=== PATIENT | male | born 1985 | race Caucasian/White ===

== ENCOUNTER 2025-07-06 11:40 | Inpatient (IN) | payer BC ==
[~2025-07-06 11:40] MED LIST: Iopamidol 300 61% 100 ML VIAL FS ONE
[2025-07-06] MEDS ORDERED: Ondansetron PF 4 MG/2 ML Vial ONE (12:16)
[2025-07-06 12:54] LABS: #Basophils 0.07 10x3/uL (0.0-0.2); #Eosinophils Less than 0.03 10x3/uL (0.0-0.5); #Monocytes 0.64 10x3/uL (0.0-1.1); #Neutrophils 9.89 10x3/uL (1.5-8.4); %Basophils 0.6 % (0.0-2.0); %Eosinophils 0.0 % (0.0-6.0); %Lymphocytes 10.8 % (18.0-47.0); %Monocytes 5.4 % (0.0-10.0); %Neutrophils 82.7 % (40.0-75.0); ALT (SGPT) 60 U/L (Less than 45); AST (SGOT) 30 U/L (11-34); Acetaminophen Less than 10 mcg/mL (Less than 10); Albumin 4.9 g/dL (3.1-4.5); Alkaline Phosphatase 95 U/L (40-110); Anion Gap 37 mmol/L (10-20); BUN (Urea Nitrogen) 30 mg/dL (8.9-20.6); Bilirubin, Total 0.8 mg/dL (0.3-1.2); CK (CPK) 216 U/L (30-200); Calc. Creatinine Clearance 0 mL/min (70-130); Calcium 10.1 mg/dL (7.8-10.44); Carbon Dioxide 10 mmol/L (22-29); Chloride 95 mmol/L (98-107); Globulin 5.5 g/dL (2.4-3.5); Hematocrit 51.3 % (38.8-50.0); Hemoglobin 16.9 g/dL (13.5-17.5); Lipase 71 U/L (8-78); Mean Corpuscular Hemoglobin 29.0 pg (27.0-33.0); Mean Corpuscular Volume 88.0 fL (81.2-95.1); Platelet Count 325 10x3/uL (150-450); Potassium 5.3 mmol/L (3.5-5.1); Red Blood Cell (RBC) Count 5.83 10x6/uL (4.32-5.72); Salicylate Less than 8.0 mg/dL (Less than 8.0); Sodium 137 mmol/L (136-145); White Blood Cell (WBC) Count 11.95 10x3/uL (3.5-10.5)
[2025-07-06 12:58] LABS: Glucose 817 mg/dL (70-105)
[2025-07-06] MEDS ORDERED: INSULIN REGULAR IN 0.9 % NACL 100 ML ONE (13:07)
[2025-07-06 13:53] LABS: Glucose, Urine (Dipstick) >=1000 mg/dL (Negative); Leukocyte Negative (Negative); Protein, Urine (Dipstick) 15 mg/dl (Neg-Trace); Specific Gravity, Urine 1.015 (1.005-1.030)
[2025-07-06 13:57] LABS: Actual Bicarbonate (HCO3v) 14.2 mEq/L (22-28); Analyzer IN Cardio CS ER; Base Excess -12.3 mEq/L (-2 - +2); Calcium, Ionized (venous) 1.21 mmol/L (1.16-1.32); Chloride (VBG) 98 mmol/L (98-106); Critical Notified Whom: SPOMI; Hematocrit-VBG 49 % (42.0-52.0); Hemoglobin (Hb) 16.5 g/dL (13.2-17.3); Potassium (VBG) 4.91 mmol/L (3.70-5.30); Puncture Site Other Site; RapidComm Collect By LAB; Sodium 141 mmol/L (133-146)
[2025-07-06 14:02] LABS: Cocaine Metabolite Screen Negative (Negative); THC/Cannabinoid Screen Negative (Negative); Tricyclic Screen Negative (Negative)
[2025-07-06 14:04] LABS: Bacteria/HPF Rare-Few HPF (None Seen); CAUTI Indications for Culture Alt mental st,lethar; RBC/HPF 0-3 HPF (0-3); Urine Culture Reflex No No; WBC/HPF 0-3 HPF (0-3)
[2025-07-06] MEDS ORDERED: Sodium Bicarb 50 MEQ/50 ML Abboject 8.4% SYRINGE ONE (14:13)
[2025-07-06] MEDS ORDERED: Electrolyte Replacement Protocol 1 EACH IVPB PRN (14:26)
[2025-07-06] MEDS ORDERED: NS 0.9% w/ 20 MEQ KCL 1,000 ML IV PRN (14:26)
[2025-07-06 14:30] LABS: Troponin I Less than 0.010 ng/mL (< 0.028)
[2025-07-06 14:48] LABS: Anion Gap 26 mmol/L (10-20); BUN (Urea Nitrogen) 29 mg/dL (8.9-20.6); Calc. Creatinine Clearance 0 mL/min (70-130); Calcium 8.6 mg/dL (7.8-10.44); Carbon Dioxide 13 mmol/L (22-29); Chloride 108 mmol/L (98-107); Magnesium 2.8 mg/dL (1.6-2.6); Potassium 4.3 mmol/L (3.5-5.1); Sodium 143 mmol/L (136-145)
[2025-07-06 14:54] LABS: Glucose 618 mg/dL (70-105)
[2025-07-06 16:08] VITALS: BMI 23.9
[2025-07-06] MEDS: NS 0.9% w/ 20 MEQ KCL 1,000 ML IV PRN (16:16)
[2025-07-06] MEDS: Sodium Bicarb 50 MEQ/50 ML Abboject 8.4% SYRINGE IVP SCH (16:17)
[2025-07-06] MEDS: INSULIN REGULAR IN 0.9 % NACL 100 ML IVPB SCH (16:30)
[2025-07-06 16:51] LABS: Glucose 441 mg/dL (70-105)
[2025-07-06 17:37] LABS: Osmolality, Serum 351 mOsm/kg (275-295)
[2025-07-06 18:55] LABS: Anion Gap 16 mmol/L (10-20); BUN (Urea Nitrogen) 23 mg/dL (8.9-20.6); Calc. Creatinine Clearance 75 mL/min (70-130); Calcium 8.8 mg/dL (7.8-10.44); Carbon Dioxide 22 mmol/L (22-29); Chloride 115 mmol/L (98-107); Glucose 269 mg/dL (70-105); Potassium 4.1 mmol/L (3.5-5.1); Sodium 149 mmol/L (136-145)
[2025-07-06] MEDS: D5 1/2 NS w/20 mEq KCL 1,000 ML IV PRN (21:15)
[2025-07-06] MEDS: Dextrose 50% Abboject 50 ML SYRINGE SLOW IVP PRN (21:18)
[2025-07-06] MEDS: Ondansetron PF 4 MG/2 ML Vial IVP PRN (21:20)
[2025-07-06 22:44] LABS: Anion Gap 11 mmol/L (10-20); BUN (Urea Nitrogen) 21 mg/dL (8.9-20.6); Calc. Creatinine Clearance 82 mL/min (70-130); Calcium 7.7 mg/dL (7.8-10.44); Carbon Dioxide 21 mmol/L (22-29); Chloride 120 mmol/L (98-107); Glucose 270 mg/dL (70-105); Potassium 4.2 mmol/L (3.5-5.1); Sodium 148 mmol/L (136-145)
[2025-07-07 04:04] LABS: Anion Gap 14 mmol/L (10-20); BUN (Urea Nitrogen) 19 mg/dL (8.9-20.6); Calc. Creatinine Clearance 88 mL/min (70-130); Calcium 7.8 mg/dL (7.8-10.44); Carbon Dioxide 18 mmol/L (22-29); Chloride 120 mmol/L (98-107); Glucose 213 mg/dL (70-105); Potassium 4.2 mmol/L (3.5-5.1); Sodium 148 mmol/L (136-145)
[2025-07-07] MEDS: Lantus 1000 UNITS/10 ML VIAL SC SCH (09:53)
[2025-07-07 10:08] LABS: Actual Bicarbonate (HCO3v) 18.6 mEq/L (22-28); Analyzer IN Cardio CS ER; Base Excess -8.2 mEq/L (-2 - +2); Calcium, Ionized (venous) 1.16 mmol/L (1.16-1.32); Chloride (VBG) 109 mmol/L (98-106); Critical Notified By: clumpkins rt; Critical Notified Whom: Karad MD; Hematocrit-VBG 44 % (42.0-52.0); Hemoglobin (Hb) 14.8 g/dL (13.2-17.3); Potassium (VBG) 4.32 mmol/L (3.70-5.30); Puncture Site Other Site; RapidComm Collect By LAB.cmj; Sodium 143 mmol/L (133-146)
[2025-07-07 10:24] LABS: Anion Gap 11 mmol/L (10-20); BUN (Urea Nitrogen) 18 mg/dL (8.9-20.6); Calc. Creatinine Clearance 90 mL/min (70-130); Calcium 7.8 mg/dL (7.8-10.44); Carbon Dioxide 21 mmol/L (22-29); Chloride 114 mmol/L (98-107); Glucose 173 mg/dL (70-105); Potassium 4.3 mmol/L (3.5-5.1); Sodium 142 mmol/L (136-145)
[2025-07-07] MEDS: glipiZIDE 5 MG TAB PO SCH (16:09)
[2025-07-07] MEDS ORDERED: Glucagon 1 MG/ML KIT IM PRN (18:45)
[2025-07-07] MEDS ORDERED: Dextrose 50% Abboject 50 ML SYRINGE SLOW IVP PRN (18:45)
[2025-07-07] MEDS: Enoxaparin 40 MG (0.4 mL) SYRINGE SC SCH (21:26)
[2025-07-08 06:48] LABS: Anion Gap 13 mmol/L (10-20); BUN (Urea Nitrogen) 16 mg/dL (8.9-20.6); Calc. Creatinine Clearance 103 mL/min (70-130); Calcium 8.1 mg/dL (7.8-10.44); Carbon Dioxide 22 mmol/L (22-29); Chloride 107 mmol/L (98-107); Glucose 258 mg/dL (70-105); Magnesium 2.1 mg/dL (1.6-2.6); Potassium 4.5 mmol/L (3.5-5.1); Sodium 137 mmol/L (136-145)
[2025-07-08] MEDS: Lantus 1000 UNITS/10 ML VIAL SC SCH (08:32)
[2025-07-08] MEDS: Acetaminophen 325 MG TAB PO SCH (22:40)
[2025-07-09 05:48] LABS: Anion Gap 18 mmol/L (10-20); BUN (Urea Nitrogen) 19 mg/dL (8.9-20.6); Calc. Creatinine Clearance 95 mL/min (70-130); Calcium 8.8 mg/dL (7.8-10.44); Carbon Dioxide 18 mmol/L (22-29); Chloride 107 mmol/L (98-107); Glucose 260 mg/dL (70-105); Potassium 4.5 mmol/L (3.5-5.1); Sodium 138 mmol/L (136-145)
[2025-07-09 11:48] VITALS: BP 139/81; TEMP 98.2
[2025-07-10] MEDS ORDERED: Acetaminophen 325 MG TAB PO PRN (04:00)
== END 2025-07-09 14:15 | disposition home or self-care (01) | DRG 638 ==
LOC: CSHERS 11:40 → CSHICU 14:28 → CSHTELE 07-08 13:33
PROVIDERS: ADMIT Hospitalist; ATTEND Hospitalist
DX: E11.10 Type 2 diabetes mellitus with ketoacidosis without coma (principal); N17.9 Acute kidney failure, unspecified; E87.5 Hyperkalemia; E88.09 Other disorders of plasma-protein metabolism, not elsewhere classified; Z88.0 Allergy status to penicillin
CPT/HCPCS: 36415; 36416; 71045; 74177; 80048; 80053; 80306; 80307; 81001; 82010; 82550; 82805; 83036; 83690; 83735; 83930; 84100; 84443; 84484; 85025; 93005; 96361; 96374; 96375; J1650; J1815; J2405; J3480; J7999; Q9967